=== PATIENT | female | born 2000 | race Two or more races ===

== ENCOUNTER 2023-03-25 11:55 | Emergency (ER) | payer OTHER ==
[~2023-03-25] VITALS: Ht 160 cm; Wt 63.5 kg
[2023-03-25] MEDS ORDERED: IBUP-1955 PO (12:52)
[2023-03-25] MEDS ORDERED: CYCL5TAB PO (12:52)
[2023-03-25] MEDS ORDERED: KETOROLAC TROMETHAMINE INJ 30 MG/ML VIAL ONE (12:55)
[2023-03-25] MEDS ORDERED: KETOROLAC TROMETHAMINE INJ 30 MG/ML VIAL IM ONE (13:00)
[2023-03-25 13:08] VITALS: BP 121/71; TEMP 98.1; O2SAT 100
== END 2023-03-25 13:09 | disposition home or self-care (01) ==
LOC: ER 12:12
DX: S16.1XXA Strain of muscle, fascia and tendon at neck level, initial encounter (principal); S09.8XXA Other specified injuries of head, initial encounter; W22.8XXA Striking against or struck by other objects, initial encounter; Y93.89 Activity, other specified; Y92.89 Other specified places as the place of occurrence of the external cause; Y99.8 Other external cause status
CPT/HCPCS: 99283; 96372; J1885